=== PATIENT | male | born 1950 | race Caucasian/White ===

== ENCOUNTER 2022-04-08 08:07 | Emergency (ER) | payer MEDICARE, OTHER ==
[2022-04-08 08:47] LABS: ESTIMATED GFR 71 mL/min (>60)
[2022-04-08] MEDS: Lactated Ringers 1,000 ML IV ONE (09:00)
== END 2022-04-08 10:50 | disposition home or self-care (01) ==
LOC: FB.ED 08:07
DX: E86.0 Dehydration (principal)
CPT/HCPCS: 36415; 80048; 81001; 85027; 96360; 99284-25; J7120

== ENCOUNTER 2023-03-22 17:59 | Inpatient (IN) | payer MEDICARE, OTHER ==
[2023-03-22] MEDS ORDERED: Sodium Chloride 0.9% 10 ML Syringe FLUSH PRN (18:39)
[2023-03-22 18:54] LABS: BASOPHILS ABSOLUTE AUTO 0.1 x10-3/uL (0.0-0.3); BASOPHILS PERCENT AUTO 0.7 % (0.3-3.8); EOSINOPHILS ABSOLUTE AUTO 0.2 x10-3/uL (0.0-0.6); EOSINOPHILS PERCENT AUTO 1.9 % (0.1-6.8); HEMATOCRIT 43.3 % (38.3-50.1); HEMOGLOBIN 14.7 g/dL (12.9-17.7); LYMPHOCYTES ABSOLUTE AUTO 1.1 x10-3/uL (0.5-4.5); LYMPHOCYTES PERCENT AUTO 13.1 % (15.8-45.3); MEAN CORPUSCULAR HEMOGLOBIN 31.5 pg (27.0-33.3); MEAN CORPUSCULAR HGB CONC 33.8 g/dL (28.7-35.3); MEAN PLATELET VOLUME 8.7 fL (6.7-11.0); MONOCYTES ABSOLUTE AUTO 0.8 x10-3/uL (0.0-1.2); MONOCYTES PERCENT AUTO 9.9 % (5.5-15.2); NEUTROPHILS ABSOLUTE AUTO 6.1 x10-3/uL (1.7-6.9); NEUTROPHILS PERCENT AUTO 74.4 % (40.3-71.8); PLATELET COUNT,PLT 77 x10(3)uL (117-477); RED BLOOD CELL COUNT 4.66 x10(6)uL (3.90-5.90); RED CELL DISTRIBUTION WIDTH 13.5 % (12.4-15.0); WHITE BLOOD CELL COUNT,WBC 8.2 x10-3/uL (3.2-10.1)
[2023-03-22 19:02] LABS: BLOOD UREA NITROGEN,BUN 23 mg/dL (7-18); BUN/CREATININE RATIO 17.7 (9-20); CALCIUM 9.3 mg/dL (8.6-10.2); CARBON DIOXIDE,CO2 29 mmol/L (21-32); CHLORIDE,CL 105 mmol/L (100-110); CREATININE 1.3 mg/dL (0.70-1.30); ESTIMATED GFR 58 mL/min (>60); GLUCOSE RANDOM 109 mg/dL (80-116); POTASSIUM,K 4.4 mmol/L (3.5-5.3); SODIUM,NA 141 mmol/L (135-145)
[2023-03-22 19:16] LABS: ALANINE AMINOTRANSFERASE,ALT 25 U/L (12-36); ALBUMIN 3.4 g/dL (3.2-4.6); ALKALINE PHOSPHATASE 61 IU/L (56-112); ASPARTATE AMNIOTRANSFERASE,AST 20 IU/L (5-25); MAGNESIUM 2.1 mg/dL (1.8-2.5); PROTEIN TOTAL,TP 6.7 g/dL (6.0-8.0)
[2023-03-22 19:23] LABS: TROPONIN I 16.4 pg/mL (4.0-60.3)
[2023-03-22] MEDS ORDERED: Lidocaine 2% HCl 6 ML Jel ONE (20:08)
[2023-03-22 20:36] LABS: INFLUENZA A NAA NEGATIVE (NEGATIVE); INFLUENZA B NAA NEGATIVE (NEGATIVE)
[2023-03-22 20:37] LABS: CORONAVIRUS COVID-19 NAA NEGATIVE (NEGATIVE)
[2023-03-22 21:23] LABS: BILIRUBIN,URINE NEGATIVE (NEGATIVE); GLUCOSE,URINE NORMAL (NORMAL); KETONES,URINE NEGATIVE (NEGATIVE); LEUKOCYTE ESTERASE,URINE NEGATIVE (NEGATIVE); NITRITE,URINE NEGATIVE (NEGATIVE); OCCULT BLOOD,URINE MODERATE (NEGATIVE); PROTEIN,URINE NEGATIVE (NEGATIVE); UROBILINOGEN,URINE NORMAL (NEGATIVE)
[2023-03-22 21:29] LABS: APPEARANCE,URINE CLEAR (CLEAR); BACTERIA,URINE OCCASIONAL (NS); COLOR,URINE YELLOW (YELLOW); SQUAMOUS EPITHELIAL CELLS,UR OCCASIONAL (NS,R,O); WBC,URINE 0-5 (0-5)
[2023-03-22] MEDS ORDERED: Sodium Chloride 0.9% 500 ML IV ONE (21:47)
[2023-03-22] MEDS ORDERED: Acetaminophen 325 MG Tab PO PRN (21:55)
[2023-03-22] MEDS ORDERED: Ondansetron 4 MG/2 ML SDV IV PRN (21:55)
[2023-03-22] MEDS ORDERED: Sodium Chloride 0.9% 1,000 ML IV SCH (22:00)
[2023-03-22] MEDS: Pantoprazole 40 MG Vial IVPUSH SCH (23:41)
[2023-03-23] MEDS: Pantoprazole 40 MG Vial IVPUSH SCH (09:16)
[2023-03-23 09:22] LABS: BLOOD UREA NITROGEN,BUN 17 mg/dL (7-18); BUN/CREATININE RATIO 14.2 (9-20); CALCIUM 8.9 mg/dL (8.6-10.2); CARBON DIOXIDE,CO2 28 mmol/L (21-32); CHLORIDE,CL 104 mmol/L (100-110); CREATININE 1.2 mg/dL (0.70-1.30); EST CRCL DRUG DOSING (CG) 54.83 mL/min; ESTIMATED GFR 64 mL/min (>60); GLUCOSE RANDOM 131 mg/dL (80-116); POTASSIUM,K 3.8 mmol/L (3.5-5.3); SODIUM,NA 140 mmol/L (135-145)
[2023-03-23] MEDS ORDERED: Melatonin 3 MG Tab PO PRN (19:55)
[2023-03-23] MEDS ORDERED: Pantoprazole 40 MG Tab.CR PO SCH (21:00)
[2023-03-23] MEDS ORDERED: Donepezil 5 MG Tab PO SCH (21:00)
[2023-03-23] MEDS ORDERED: Citalopram 10 MG Tab PO SCH (21:00)
[2023-03-23] MEDS ORDERED: Tamsulosin 0.4 MG Cap.ER PO SCH (21:00)
[2023-03-24 06:16] LABS: BASOPHILS PERCENT AUTO 0.7 % (0.3-3.8); EOSINOPHILS ABSOLUTE AUTO 0.2 x10-3/uL (0.0-0.6); EOSINOPHILS PERCENT AUTO 3.3 % (0.1-6.8); HEMATOCRIT 40.4 % (38.3-50.1); HEMOGLOBIN 13.5 g/dL (12.9-17.7); LYMPHOCYTES ABSOLUTE AUTO 1.5 x10-3/uL (0.5-4.5); LYMPHOCYTES PERCENT AUTO 25.5 % (15.8-45.3); MEAN CORPUSCULAR HEMOGLOBIN 31.1 pg (27.0-33.3); MEAN CORPUSCULAR HGB CONC 33.4 g/dL (28.7-35.3); MEAN CORPUSCULAR VOLUME 93.1 fL (80.8-98.7); MEAN PLATELET VOLUME 8.4 fL (6.7-11.0); MONOCYTES ABSOLUTE AUTO 0.8 x10-3/uL (0.0-1.2); MONOCYTES PERCENT AUTO 12.5 % (5.5-15.2); NEUTROPHILS ABSOLUTE AUTO 3.5 x10-3/uL (1.7-6.9); PLATELET COUNT,PLT 62 x10(3)uL (117-477); RED BLOOD CELL COUNT 4.34 x10(6)uL (3.90-5.90); RED CELL DISTRIBUTION WIDTH 13.7 % (12.4-15.0)
[2023-03-24 06:22] LABS: BLOOD UREA NITROGEN,BUN 16 mg/dL (7-18); BUN/CREATININE RATIO 14.5 (9-20); CALCIUM 8.5 mg/dL (8.6-10.2); CARBON DIOXIDE,CO2 29 mmol/L (21-32); CHLORIDE,CL 105 mmol/L (100-110); CREATININE 1.1 mg/dL (0.70-1.30); EST CRCL DRUG DOSING (CG) 59.81 mL/min; ESTIMATED GFR 71 mL/min (>60); GLUCOSE RANDOM 102 mg/dL (80-116); POTASSIUM,K 3.9 mmol/L (3.5-5.3); SODIUM,NA 140 mmol/L (135-145)
== END 2023-03-24 15:00 | disposition home health service (06) | DRG 923 ==
LOC: FB.ED 17:59 → FB.MS 23:04 → OBSVTOIN 03-23 11:06
PROVIDERS: ADMIT Emergency Medicine; ATTEND Family Medicine
DX: T67.5XXA Heat exhaustion, unspecified, initial encounter (principal); E86.0 Dehydration; D69.6 Thrombocytopenia, unspecified; N40.0 Benign prostatic hyperplasia without lower urinary tract symptoms; R26.2 Difficulty in walking, not elsewhere classified; Z51.5 Encounter for palliative care; Z66 Do not resuscitate; N40.1 Benign prostatic hyperplasia with lower urinary tract symptoms; R53.1 Weakness; N39.498 Other specified urinary incontinence; F03.90 Unspecified dementia, unspecified severity, without behavioral disturbance, psychotic disturbance, mood disturbance, and anxiety; G20 Parkinson's disease; G30.9 Alzheimer's disease, unspecified; F02.B0 Dementia in other diseases classified elsewhere, moderate, without behavioral disturbance, psychotic disturbance, mood disturbance, and anxiety; Z96.652 Presence of left artificial knee joint; Z20.822 Contact with and (suspected) exposure to COVID-19; E78.00 Pure hypercholesterolemia, unspecified; Z79.82 Long term (current) use of aspirin; Z79.899 Other long term (current) drug therapy; X30.XXXA Exposure to excessive natural heat, initial encounter
CPT/HCPCS: 0240U; 36415; 71045; 80048; 80053; 81001; 83735; 83880; 84484; 85025; 86140; 87086; 93005; 97116; 97161; 97165; 97530; 99285; 99223; 99238; A9270-GY; C1758; C9113; J7030; J7040

== ENCOUNTER 2023-03-28 15:58 | Inpatient (IN) | payer MEDICARE, OTHER ==
[2023-03-28 16:45] LABS: BASOPHILS ABSOLUTE AUTO 0.1 x10-3/uL (0.0-0.3); BASOPHILS PERCENT AUTO 0.9 % (0.3-3.8); EOSINOPHILS ABSOLUTE AUTO 0.2 x10-3/uL (0.0-0.6); EOSINOPHILS PERCENT AUTO 3.2 % (0.1-6.8); HEMOGLOBIN 13.7 g/dL (12.9-17.7); LYMPHOCYTES ABSOLUTE AUTO 1.3 x10-3/uL (0.5-4.5); MEAN CORPUSCULAR HEMOGLOBIN 31.2 pg (27.0-33.3); MEAN CORPUSCULAR HGB CONC 33.6 g/dL (28.7-35.3); MEAN CORPUSCULAR VOLUME 92.9 fL (80.8-98.7); MEAN PLATELET VOLUME 8.7 fL (6.7-11.0); MONOCYTES ABSOLUTE AUTO 0.6 x10-3/uL (0.0-1.2); MONOCYTES PERCENT AUTO 8.8 % (5.5-15.2); NEUTROPHILS ABSOLUTE AUTO 4.2 x10-3/uL (1.7-6.9); NEUTROPHILS PERCENT AUTO 66.1 % (40.3-71.8); PLATELET COUNT,PLT 70 x10(3)uL (117-477); RED BLOOD CELL COUNT 4.41 x10(6)uL (3.90-5.90); RED CELL DISTRIBUTION WIDTH 13.6 % (12.4-15.0); WHITE BLOOD CELL COUNT,WBC 6.3 x10-3/uL (3.2-10.1)
[2023-03-28 16:58] LABS: A/G RATIO 0.9; ALANINE AMINOTRANSFERASE,ALT 31 U/L (12-36); ALBUMIN 3.1 g/dL (3.2-4.6); ALKALINE PHOSPHATASE 66 IU/L (56-112); ASPARTATE AMNIOTRANSFERASE,AST 30 IU/L (5-25); BILIRUBIN TOTAL 0.7 mg/dL (0.1-1.3); BLOOD UREA NITROGEN,BUN 24 mg/dL (7-18); CARBON DIOXIDE,CO2 32 mmol/L (21-32); CHLORIDE,CL 96 mmol/L (100-110); CREATININE 1.6 mg/dL (0.70-1.30); ESTIMATED GFR 45 mL/min (>60); GLUCOSE RANDOM 109 mg/dL (80-116); POTASSIUM,K 4.3 mmol/L (3.5-5.3); PROTEIN TOTAL,TP 6.6 g/dL (6.0-8.0); SODIUM,NA 126 mmol/L (135-145)
[2023-03-28 17:00] LABS: C-REACTIVE PROTEIN 2.3 mg/dL (0.5-0.9)
[2023-03-28 17:01] LABS: TROPONIN I 61.6 pg/mL (4.0-60.3)
[2023-03-28 17:07] LABS: INR 1.61 (1.00-1.24); PROTHROMBIN TIME 16.4 sec (9.0-11.1)
[2023-03-28] MEDS ORDERED: Acetaminophen 325 MG Tab PO PRN (17:54)
[2023-03-28] MEDS ORDERED: LORazepam 2 MG/ML SDV IVPUSH PRN (17:58)
[2023-03-28] MEDS: Citalopram 10 MG Tab PO SCH (20:45)
[2023-03-28] MEDS: Tamsulosin 0.4 MG Cap.ER PO SCH (20:45)
[2023-03-28] MEDS: Melatonin 3 MG Tab PO SCH (20:45)
[2023-03-28] MEDS: Donepezil 5 MG Tab PO SCH (20:45)
[2023-03-28 21:08] LABS: APPEARANCE,URINE CLEAR (CLEAR); BACTERIA,URINE FEW (NS); BILIRUBIN,URINE NEGATIVE (NEGATIVE); COLOR,URINE YELLOW (YELLOW); GLUCOSE,URINE NORMAL (NORMAL); KETONES,URINE NEGATIVE (NEGATIVE); LEUKOCYTE ESTERASE,URINE NEGATIVE (NEGATIVE); NITRITE,URINE NEGATIVE (NEGATIVE); OCCULT BLOOD,URINE MODERATE (NEGATIVE); PROTEIN,URINE NEGATIVE (NEGATIVE); SQUAMOUS EPITHELIAL CELLS,UR FEW (NS,R,O); UROBILINOGEN,URINE NORMAL (NEGATIVE); WBC,URINE 0-5 (0-5)
[2023-03-29] MEDS ORDERED: LORazepam 0.5 MG Tab PO PRN (09:08)
[2023-03-29] MEDS: Apixaban 5 MG Tab PO SCH ×2 (09:15→20:13)
[2023-03-29] MEDS ORDERED: Furosemide 20 MG Tab PO SCH (09:15)
[2023-03-29] MEDS ORDERED: Furosemide 20 MG Tab PO ONE (14:07)
[2023-03-29] MEDS: Donepezil 5 MG Tab PO SCH (20:12)
[2023-03-29] MEDS: Tamsulosin 0.4 MG Cap.ER PO SCH (20:13)
[2023-03-29] MEDS: Melatonin 3 MG Tab PO SCH (20:13)
[2023-03-29] MEDS: Citalopram 10 MG Tab PO SCH (20:13)
[2023-03-30 06:52] LABS: BLOOD UREA NITROGEN,BUN 21 mg/dL (7-18); BUN/CREATININE RATIO 16.2 (9-20); CALCIUM 8.8 mg/dL (8.6-10.2); CARBON DIOXIDE,CO2 29 mmol/L (21-32); CHLORIDE,CL 103 mmol/L (100-110); CREATININE 1.3 mg/dL (0.70-1.30); ESTIMATED GFR 58 mL/min (>60); GLUCOSE RANDOM 106 mg/dL (80-116); POTASSIUM,K 4.1 mmol/L (3.5-5.3); SODIUM,NA 139 mmol/L (135-145)
[2023-03-30] MEDS: Apixaban 5 MG Tab PO SCH ×2 (08:16→20:09)
[2023-03-30] MEDS: Furosemide 20 MG Tab PO SCH ×2 (08:17→14:06)
[2023-03-30] MEDS: Melatonin 3 MG Tab PO SCH (20:09)
[2023-03-30] MEDS: Citalopram 10 MG Tab PO SCH (20:09)
[2023-03-30] MEDS: Tamsulosin 0.4 MG Cap.ER PO SCH (20:09)
[2023-03-30] MEDS: Donepezil 5 MG Tab PO SCH (20:09)
[2023-03-31 07:14] LABS: BASOPHILS ABSOLUTE AUTO 0.1 x10-3/uL (0.0-0.3); BASOPHILS PERCENT AUTO 1.1 % (0.3-3.8); EOSINOPHILS ABSOLUTE AUTO 0.2 x10-3/uL (0.0-0.6); EOSINOPHILS PERCENT AUTO 4.6 % (0.1-6.8); HEMATOCRIT 39.2 % (38.3-50.1); HEMOGLOBIN 13.3 g/dL (12.9-17.7); LYMPHOCYTES ABSOLUTE AUTO 1.4 x10-3/uL (0.5-4.5); LYMPHOCYTES PERCENT AUTO 27.3 % (15.8-45.3); MEAN CORPUSCULAR HEMOGLOBIN 31.2 pg (27.0-33.3); MEAN CORPUSCULAR HGB CONC 33.8 g/dL (28.7-35.3); MEAN CORPUSCULAR VOLUME 92.3 fL (80.8-98.7); MEAN PLATELET VOLUME 8.9 fL (6.7-11.0); MONOCYTES ABSOLUTE AUTO 0.6 x10-3/uL (0.0-1.2); MONOCYTES PERCENT AUTO 12.4 % (5.5-15.2); NEUTROPHILS ABSOLUTE AUTO 2.9 x10-3/uL (1.7-6.9); NEUTROPHILS PERCENT AUTO 54.6 % (40.3-71.8); PLATELET COUNT,PLT 92 x10(3)uL (117-477); RED BLOOD CELL COUNT 4.25 x10(6)uL (3.90-5.90); RED CELL DISTRIBUTION WIDTH 13.4 % (12.4-15.0); WHITE BLOOD CELL COUNT,WBC 5.2 x10-3/uL (3.2-10.1)
[2023-03-31 07:18] LABS: BLOOD UREA NITROGEN,BUN 26 mg/dL (7-18); BUN/CREATININE RATIO 18.6 (9-20); CALCIUM 8.7 mg/dL (8.6-10.2); CARBON DIOXIDE,CO2 30 mmol/L (21-32); CHLORIDE,CL 103 mmol/L (100-110); CREATININE 1.4 mg/dL (0.70-1.30); EST CRCL DRUG DOSING (CG) 50.05 mL/min; ESTIMATED GFR 53 mL/min (>60); GLUCOSE RANDOM 102 mg/dL (80-116); SODIUM,NA 138 mmol/L (135-145)
[2023-03-31] MEDS: Furosemide 20 MG Tab PO SCH (08:12)
[2023-03-31] MEDS: Apixaban 5 MG Tab PO SCH (08:12)
[2023-04-04] MEDS ORDERED: Apixaban 5 MG Tab PO SCH (21:00)
== END 2023-03-31 09:17 | disposition swing bed (61) | DRG 175 ==
LOC: FB.ED 15:58 → FB.MS 17:41
PROVIDERS: ADMIT Family Medicine; ATTEND Family Medicine
DX: I26.94 Multiple subsegmental thrombotic pulmonary emboli without acute cor pulmonale (principal); I50.21 Acute systolic (congestive) heart failure; I26.99 Other pulmonary embolism without acute cor pulmonale; I50.9 Heart failure, unspecified; I82.411 Acute embolism and thrombosis of right femoral vein; Z74.1 Need for assistance with personal care; E87.1 Hypo-osmolality and hyponatremia; N19 Unspecified kidney failure; Z66 Do not resuscitate; F32.A Depression, unspecified; D69.6 Thrombocytopenia, unspecified; G47.00 Insomnia, unspecified; Z96.652 Presence of left artificial knee joint; E88.09 Other disorders of plasma-protein metabolism, not elsewhere classified; R79.82 Elevated C-reactive protein (CRP); F02.B0 Dementia in other diseases classified elsewhere, moderate, without behavioral disturbance, psychotic disturbance, mood disturbance, and anxiety; G20 Parkinson's disease; G30.9 Alzheimer's disease, unspecified; N40.0 Benign prostatic hyperplasia without lower urinary tract symptoms; Z51.5 Encounter for palliative care; Z90.49 Acquired absence of other specified parts of digestive tract; Z79.01 Long term (current) use of anticoagulants; F02.80 Dementia in other diseases classified elsewhere, unspecified severity, without behavioral disturbance, psychotic disturbance, mood disturbance, and anxiety; E78.00 Pure hypercholesterolemia, unspecified; Z98.890 Other specified postprocedural states; Z79.899 Other long term (current) drug therapy
CPT/HCPCS: 36415; 71045; 80048; 80053; 81001; 83880; 84484; 85025; 85379; 85610; 86140; 93005; 97116-GP; 97161-GP; 97165-GO; 99285; A9270-GY

== ENCOUNTER 2023-03-31 09:00 | Inpatient (IN) | payer MEDICARE, OTHER ==
[2023-03-31] MEDS ORDERED: traZODone 50 MG Tab PO PRN (09:26)
[2023-03-31 14:59] LABS: BASOPHILS PERCENT AUTO 0.8 % (0.3-3.8); EOSINOPHILS ABSOLUTE AUTO 0.2 x10-3/uL (0.0-0.6); EOSINOPHILS PERCENT AUTO 3.6 % (0.1-6.8); HEMATOCRIT 38.7 % (38.3-50.1); HEMOGLOBIN 13.1 g/dL (12.9-17.7); LYMPHOCYTES ABSOLUTE AUTO 1.3 x10-3/uL (0.5-4.5); LYMPHOCYTES PERCENT AUTO 20.4 % (15.8-45.3); MEAN CORPUSCULAR HEMOGLOBIN 31.4 pg (27.0-33.3); MEAN CORPUSCULAR HGB CONC 33.9 g/dL (28.7-35.3); MEAN CORPUSCULAR VOLUME 92.6 fL (80.8-98.7); MEAN PLATELET VOLUME 8.7 fL (6.7-11.0); MONOCYTES ABSOLUTE AUTO 0.7 x10-3/uL (0.0-1.2); MONOCYTES PERCENT AUTO 10.5 % (5.5-15.2); NEUTROPHILS PERCENT AUTO 64.7 % (40.3-71.8); PLATELET COUNT,PLT 93 x10(3)uL (117-477); RED BLOOD CELL COUNT 4.17 x10(6)uL (3.90-5.90); RED CELL DISTRIBUTION WIDTH 13.8 % (12.4-15.0); WHITE BLOOD CELL COUNT,WBC 6.3 x10-3/uL (3.2-10.1)
[2023-03-31 15:02] LABS: BLOOD UREA NITROGEN,BUN 31 mg/dL (7-18); BUN/CREATININE RATIO 23.8 (9-20); CALCIUM 8.5 mg/dL (8.6-10.2); CARBON DIOXIDE,CO2 28 mmol/L (21-32); CHLORIDE,CL 102 mmol/L (100-110); CREATININE 1.3 mg/dL (0.70-1.30); ESTIMATED GFR 58 mL/min (>60); GLUCOSE RANDOM 124 mg/dL (80-116); POTASSIUM,K 3.9 mmol/L (3.5-5.3); SODIUM,NA 138 mmol/L (135-145)
[2023-03-31] MEDS: Tamsulosin 0.4 MG Cap.ER PO SCH (20:08)
[2023-03-31] MEDS: Citalopram 10 MG Tab PO SCH (20:08)
[2023-03-31] MEDS: Donepezil 5 MG Tab PO SCH (20:08)
[2023-03-31] MEDS: Melatonin 3 MG Tab PO PRN (20:54)
[2023-03-31] MEDS: Apixaban 5 MG Tab PO SCH (21:00)
[2023-04-01] MEDS: Apixaban 5 MG Tab PO SCH ×2 (09:18→20:04)
[2023-04-01] MEDS: Donepezil 5 MG Tab PO SCH (20:04)
[2023-04-01] MEDS: Tamsulosin 0.4 MG Cap.ER PO SCH (20:04)
[2023-04-01] MEDS: Citalopram 10 MG Tab PO SCH (20:04)
[2023-04-01] MEDS: Melatonin 3 MG Tab PO PRN (21:20)
[2023-04-02] MEDS: Apixaban 5 MG Tab PO SCH ×2 (08:37→20:07)
[2023-04-02] MEDS: Acetaminophen 325 MG Tab PO PRN (12:38)
[2023-04-02] MEDS: Ondansetron 4 MG Tab.DIS PO PRN (12:38)
[2023-04-02] MEDS: Donepezil 5 MG Tab PO SCH (20:07)
[2023-04-02] MEDS: Tamsulosin 0.4 MG Cap.ER PO SCH (20:07)
[2023-04-02] MEDS: Citalopram 10 MG Tab PO SCH (20:07)
[2023-04-02] MEDS: Melatonin 3 MG Tab PO PRN (20:08)
[2023-04-03 06:23] LABS: BASOPHILS PERCENT AUTO 0.4 % (0.3-3.8); EOSINOPHILS ABSOLUTE AUTO 0.2 x10-3/uL (0.0-0.6); EOSINOPHILS PERCENT AUTO 1.8 % (0.1-6.8); HEMATOCRIT 38.7 % (38.3-50.1); LYMPHOCYTES ABSOLUTE AUTO 1.6 x10-3/uL (0.5-4.5); LYMPHOCYTES PERCENT AUTO 16.5 % (15.8-45.3); MEAN CORPUSCULAR HEMOGLOBIN 31.3 pg (27.0-33.3); MEAN CORPUSCULAR HGB CONC 33.6 g/dL (28.7-35.3); MEAN PLATELET VOLUME 8.4 fL (6.7-11.0); MONOCYTES PERCENT AUTO 10.2 % (5.5-15.2); NEUTROPHILS ABSOLUTE AUTO 6.9 x10-3/uL (1.7-6.9); NEUTROPHILS PERCENT AUTO 71.1 % (40.3-71.8); PLATELET COUNT,PLT 117 x10(3)uL (117-477); RED BLOOD CELL COUNT 4.16 x10(6)uL (3.90-5.90); RED CELL DISTRIBUTION WIDTH 13.6 % (12.4-15.0); WHITE BLOOD CELL COUNT,WBC 9.6 x10-3/uL (3.2-10.1)
[2023-04-03 06:29] LABS: BLOOD UREA NITROGEN,BUN 23 mg/dL (7-18); BUN/CREATININE RATIO 19.2 (9-20); CALCIUM 8.6 mg/dL (8.6-10.2); CARBON DIOXIDE,CO2 31 mmol/L (21-32); CHLORIDE,CL 105 mmol/L (100-110); CREATININE 1.2 mg/dL (0.70-1.30); EST CRCL DRUG DOSING (CG) 58.39 mL/min; ESTIMATED GFR 64 mL/min (>60); GLUCOSE RANDOM 108 mg/dL (80-116); POTASSIUM,K 4.1 mmol/L (3.5-5.3); SODIUM,NA 139 mmol/L (135-145)
[2023-04-03] MEDS: Apixaban 5 MG Tab PO SCH ×2 (08:01→20:02)
[2023-04-03] MEDS: Citalopram 10 MG Tab PO SCH (20:02)
[2023-04-03] MEDS: Donepezil 5 MG Tab PO SCH (20:03)
[2023-04-03] MEDS: Melatonin 3 MG Tab PO PRN (20:03)
[2023-04-03] MEDS: Acetaminophen 325 MG Tab PO PRN (23:32)
[2023-04-04] MEDS: Apixaban 5 MG Tab PO SCH ×2 (08:01→20:13)
[2023-04-04] MEDS: Donepezil 5 MG Tab PO SCH (20:12)
[2023-04-04] MEDS: Melatonin 3 MG Tab PO PRN (20:16)
[2023-04-04] MEDS ORDERED: Citalopram 10 MG Tab PO SCH (21:00)
[2023-04-05] MEDS: Apixaban 5 MG Tab PO SCH ×2 (09:44→20:01)
[2023-04-05 10:32] LABS: BLOOD UREA NITROGEN,BUN 22 mg/dL (7-18); BUN/CREATININE RATIO 18.3 (9-20); CALCIUM 9.2 mg/dL (8.6-10.2); CARBON DIOXIDE,CO2 30 mmol/L (21-32); CHLORIDE,CL 103 mmol/L (100-110); CREATININE 1.2 mg/dL (0.70-1.30); EST CRCL DRUG DOSING (CG) 58.39 mL/min; ESTIMATED GFR 64 mL/min (>60); GLUCOSE RANDOM 111 mg/dL (80-116); POTASSIUM,K 4.5 mmol/L (3.5-5.3); SODIUM,NA 138 mmol/L (135-145)
[2023-04-05] MEDS: Citalopram 20 MG Tab PO SCH (20:00)
[2023-04-05] MEDS: Acetaminophen 325 MG Tab PO PRN (20:00)
[2023-04-05] MEDS: Melatonin 3 MG Tab PO PRN (20:00)
[2023-04-05] MEDS: Donepezil 5 MG Tab PO SCH (20:01)
[2023-04-06] MEDS: Apixaban 5 MG Tab PO SCH ×2 (08:43→20:04)
[2023-04-06] MEDS: Citalopram 20 MG Tab PO SCH (20:04)
[2023-04-06] MEDS: Donepezil 5 MG Tab PO SCH (20:04)
[2023-04-06] MEDS: Acetaminophen 325 MG Tab PO PRN (20:05)
[2023-04-06] MEDS: Melatonin 3 MG Tab PO PRN (20:05)
[2023-04-07] MEDS: Apixaban 5 MG Tab PO SCH ×2 (08:56→21:02)
[2023-04-07] MEDS: Ondansetron 4 MG Tab.DIS PO PRN (12:16)
[2023-04-07] MEDS: Acetaminophen 325 MG Tab PO PRN (12:16)
[2023-04-07] MEDS: Donepezil 5 MG Tab PO SCH (21:02)
[2023-04-07] MEDS: Citalopram 20 MG Tab PO SCH (21:02)
[2023-04-07] MEDS: Melatonin 3 MG Tab PO SCH (21:02)
[2023-04-08] MEDS: Apixaban 5 MG Tab PO SCH ×2 (08:43→21:08)
[2023-04-08] MEDS: Donepezil 5 MG Tab PO SCH (21:07)
[2023-04-08] MEDS: Citalopram 20 MG Tab PO SCH (21:08)
[2023-04-08] MEDS: Melatonin 3 MG Tab PO SCH (21:08)
[2023-04-09] MEDS: Apixaban 5 MG Tab PO SCH ×2 (08:54→20:04)
[2023-04-09] MEDS: Melatonin 3 MG Tab PO SCH (20:04)
[2023-04-09] MEDS: Citalopram 20 MG Tab PO SCH (20:04)
[2023-04-09] MEDS: Donepezil 5 MG Tab PO SCH (20:04)
[2023-04-10] MEDS: Apixaban 5 MG Tab PO SCH ×2 (08:57→20:08)
[2023-04-10] MEDS: Citalopram 20 MG Tab PO SCH (20:08)
[2023-04-10] MEDS: Melatonin 3 MG Tab PO SCH (20:08)
[2023-04-10] MEDS: Donepezil 5 MG Tab PO SCH (20:08)
[2023-04-11] MEDS: Apixaban 5 MG Tab PO SCH ×2 (08:21→20:02)
[2023-04-11] MEDS: Citalopram 20 MG Tab PO SCH (20:02)
[2023-04-11] MEDS: Melatonin 3 MG Tab PO SCH (20:02)
[2023-04-11] MEDS: Donepezil 5 MG Tab PO SCH (20:02)
[2023-04-12] MEDS: Apixaban 5 MG Tab PO SCH (08:53)
== END 2023-04-12 10:00 | DRG 947 ==
LOC: FB.MS 09:00
PROVIDERS: ADMIT Family Medicine; ATTEND Student in an Organized Health Care Education/Training Program
DX: R53.1 Weakness (principal); I26.94 Multiple subsegmental thrombotic pulmonary emboli without acute cor pulmonale; I50.42 Chronic combined systolic (congestive) and diastolic (congestive) heart failure; I82.401 Acute embolism and thrombosis of unspecified deep veins of right lower extremity; R26.2 Difficulty in walking, not elsewhere classified; Z51.5 Encounter for palliative care; Z20.822 Contact with and (suspected) exposure to COVID-19; E78.00 Pure hypercholesterolemia, unspecified; N40.1 Benign prostatic hyperplasia with lower urinary tract symptoms; R32 Unspecified urinary incontinence; G30.9 Alzheimer's disease, unspecified; F02.B0 Dementia in other diseases classified elsewhere, moderate, without behavioral disturbance, psychotic disturbance, mood disturbance, and anxiety; G20 Parkinson's disease; Z96.652 Presence of left artificial knee joint; Z98.890 Other specified postprocedural states; Z79.899 Other long term (current) drug therapy
CPT/HCPCS: 36415; 70450; 70551; 80048; 84484; 85025; 93005; 93010; 93306; 97116-GP; 97530-GO; 97530-GP; 99306; 99309; 99316; A9270-GY; Q0162; U0002

== ENCOUNTER 2023-05-04 09:32 | Emergency (ER) | payer MEDICARE, OTHER ==
[2023-05-04] MEDS ORDERED: Sodium Chloride 0.9% 10 ML Syringe FLUSH PRN (09:39)
[2023-05-04 10:04] LABS: BASOPHILS PERCENT AUTO 0.6 % (0.3-3.8); EOSINOPHILS ABSOLUTE AUTO 0.1 x10-3/uL (0.0-0.6); EOSINOPHILS PERCENT AUTO 1.9 % (0.1-6.8); HEMATOCRIT 41.1 % (38.3-50.1); LYMPHOCYTES ABSOLUTE AUTO 1.1 x10-3/uL (0.5-4.5); LYMPHOCYTES PERCENT AUTO 16.2 % (15.8-45.3); MEAN CORPUSCULAR HEMOGLOBIN 31.2 pg (27.0-33.3); MEAN CORPUSCULAR HGB CONC 34.1 g/dL (28.7-35.3); MEAN CORPUSCULAR VOLUME 91.6 fL (80.8-98.7); MEAN PLATELET VOLUME 8.6 fL (6.7-11.0); MONOCYTES ABSOLUTE AUTO 0.5 x10-3/uL (0.0-1.2); NEUTROPHILS ABSOLUTE AUTO 5.2 x10-3/uL (1.7-6.9); NEUTROPHILS PERCENT AUTO 74.3 % (40.3-71.8); PLATELET COUNT,PLT 91 x10(3)uL (117-477); RED BLOOD CELL COUNT 4.49 x10(6)uL (3.90-5.90)
[2023-05-04 10:09] LABS: BLOOD UREA NITROGEN,BUN 23 mg/dL (7-18); BUN/CREATININE RATIO 17.7 (9-20); CALCIUM 8.9 mg/dL (8.6-10.2); CARBON DIOXIDE,CO2 30 mmol/L (21-32); CHLORIDE,CL 105 mmol/L (100-110); CREATININE 1.3 mg/dL (0.70-1.30); ESTIMATED GFR 58 mL/min (>60); GLUCOSE RANDOM 129 mg/dL (80-116); POTASSIUM,K 3.9 mmol/L (3.5-5.3); SODIUM,NA 142 mmol/L (135-145)
[2023-05-04 10:14] LABS: A/G RATIO 0.7; ALANINE AMINOTRANSFERASE,ALT 21 U/L (12-36); ALBUMIN 2.9 g/dL (3.2-4.6); ALKALINE PHOSPHATASE 68 IU/L (56-112); ASPARTATE AMNIOTRANSFERASE,AST 18 IU/L (5-25); PROTEIN TOTAL,TP 6.8 g/dL (6.0-8.0)
[2023-05-04 10:21] LABS: INR 1.65 (1.00-1.24); PROTHROMBIN TIME 16.8 sec (9.0-11.1)
[2023-05-04 10:22] LABS: PTT,PARTIAL THROMBOPLSTIN TIME 71.2 SECONDS (24.4-33.2)
[2023-05-04 10:25] LABS: LACTIC ACID 1.4 mmol/L (0.4-2.0)
[2023-05-04 11:31] LABS: BILIRUBIN,URINE NEGATIVE (NEGATIVE); GLUCOSE,URINE NORMAL (NORMAL); KETONES,URINE NEGATIVE (NEGATIVE); LEUKOCYTE ESTERASE,URINE LARGE (NEGATIVE); NITRITE,URINE POSITIVE (NEGATIVE); OCCULT BLOOD,URINE MODERATE (NEGATIVE); PROTEIN,URINE 30 mg/dL (NEGATIVE); UROBILINOGEN,URINE NORMAL (NEGATIVE)
[2023-05-04 11:36] LABS: APPEARANCE,URINE CLOUDY (CLEAR); BACTERIA,URINE MANY (NS); COLOR,URINE ORANGE (YELLOW); RBC,URINE >100 (0-5); SQUAMOUS EPITHELIAL CELLS,UR FEW (NS,R,O); WBC,URINE >100 (0-5)
== END 2023-05-04 13:10 ==
LOC: FB.ED 09:32
DX: M62.81 Muscle weakness (generalized) (principal); N39.0 Urinary tract infection, site not specified; G20 Parkinson's disease; I50.42 Chronic combined systolic (congestive) and diastolic (congestive) heart failure; N40.0 Benign prostatic hyperplasia without lower urinary tract symptoms; E78.00 Pure hypercholesterolemia, unspecified; Z79.01 Long term (current) use of anticoagulants; Z79.899 Other long term (current) drug therapy; Z86.718 Personal history of other venous thrombosis and embolism; Z20.822 Contact with and (suspected) exposure to COVID-19
CPT/HCPCS: 36415; 70450; 71045; 80053; 81001; 83605; 83880; 84484; 85025; 85610; 85730; 86140; 87040; 87086; 87088; 87186; 99285; U0002

== ENCOUNTER 2023-07-13 00:34 | Emergency (ER) | payer MEDICARE, OTHER ==
[2023-07-13 01:14] LABS: HEMATOCRIT 38.5 % (38.3-50.1); MEAN CORPUSCULAR HEMOGLOBIN 29.8 pg (27.0-33.3); MEAN CORPUSCULAR HGB CONC 33.8 g/dL (28.7-35.3); MEAN CORPUSCULAR VOLUME 88.2 fL (80.8-98.7); PLATELET COUNT,PLT 101 x10(3)uL (117-477); RED BLOOD CELL COUNT 4.37 x10(6)uL (3.90-5.90); RED CELL DISTRIBUTION WIDTH 14.6 % (12.4-15.0); WHITE BLOOD CELL COUNT,WBC 11.2 x10-3/uL (3.2-10.1)
[2023-07-13 01:21] LABS: BLOOD UREA NITROGEN,BUN 33 mg/dL (7-18); BUN/CREATININE RATIO 20.6 (9-20); CARBON DIOXIDE,CO2 26 mmol/L (21-32); CHLORIDE,CL 104 mmol/L (100-110); CREATININE 1.6 mg/dL (0.70-1.30); EST CRCL DRUG DOSING (CG) 45.24 mL/min; ESTIMATED GFR 45 mL/min (>60); GLUCOSE RANDOM 157 mg/dL (80-116); POTASSIUM,K 4.2 mmol/L (3.5-5.3); SODIUM,NA 140 mmol/L (135-145)
[2023-07-13 01:27] LABS: A/G RATIO 0.7; ALANINE AMINOTRANSFERASE,ALT 87 U/L (12-36); ALBUMIN 2.8 g/dL (3.2-4.6); ALKALINE PHOSPHATASE 140 IU/L (56-112); ASPARTATE AMNIOTRANSFERASE,AST 71 IU/L (5-25); BILIRUBIN TOTAL 0.8 mg/dL (0.1-1.3); PROTEIN TOTAL,TP 6.7 g/dL (6.0-8.0)
[2023-07-13 01:29] LABS: LACTIC ACID 1.5 mmol/L (0.4-2.0)
[2023-07-13] MEDS ORDERED: Cephalexin 500 MG Cap PO ONE (01:36)
[2023-07-13 01:39] LABS: BAND PERCENT MAN 8 % (0-6); LYMPHOCYTES PERCENT MAN 8 % (13-37); MONOCYTES PERCENT MAN 4 % (4-12); SEG NEUTROPHILS PERCENT MAN 80 % (46-82)
== END 2023-07-13 02:17 ==
LOC: FB.ED 00:34
DX: E86.0 Dehydration (principal); L03.115 Cellulitis of right lower limb; I12.9 Hypertensive chronic kidney disease with stage 1 through stage 4 chronic kidney disease, or unspecified chronic kidney disease; N18.9 Chronic kidney disease, unspecified; Z86.711 Personal history of pulmonary embolism; Z79.01 Long term (current) use of anticoagulants; Z79.899 Other long term (current) drug therapy
CPT/HCPCS: 36415; 71045; 80053; 83605; 85025; 99285; A9270